=== PATIENT | male | born 1960 | race Two or more races ===

== ENCOUNTER 2020-06-07 10:50 | Outpatient (REF) | payer OTHER, SELFPAY ==
[2020-06-07 14:08] LABS: Hematocrit 42.7 % (42-52)
[2020-06-07 14:37] LABS: Estimated Average Glucose 140 mg/dL; Hemoglobin A1c % 6.5 %
[2020-06-07 14:41] LABS: Anion Gap 14 (12-20); Blood Urea Nitrogen 21 mg/dL (9-16); Calcium 9.3 mg/dL (8.4-10.2); Carbon Dioxide 29 mmol/L (22-29); Chloride 102 mmol/L (96-108); Estimated Glomerular Filt Rate 53; Glucose Random 101 mg/dL (60-115); Magnesium 2.3 mg/dL (1.6-2.6); Sodium 141 mmol/L (135-145)
[2020-06-07 14:45] LABS: Creatinine Urine 109.92 mg/dL; Microalbum/Creatinine Ratio Ur 315.6 ug/mg cr
[2020-06-07 15:43] LABS: TSH reflex Free T4 1.01 mIU/mL (0.32-4.0)
[2020-06-08 20:07] LABS: LDL Cholesterol Direct 109 mg/dL (<100)
== END 2020-06-07 10:51 | disposition home or self-care (01) ==
LOC: HO.HMGCLDS 10:50
PROVIDERS: Visit Provider Internal Medicine
DX: E13.9 Other specified diabetes mellitus without complications (principal); Z76.89 Persons encountering health services in other specified circumstances; K21.9 Gastro-esophageal reflux disease without esophagitis; B18.2 Chronic viral hepatitis C; E78.9 Disorder of lipoprotein metabolism, unspecified; K74.60 Unspecified cirrhosis of liver
CPT/HCPCS: 36415; 80048; 82043; 83036; 83721; 83735; 84443; 85014; 85018